=== PATIENT | male | born 1950 | race Caucasian/White ===

== ENCOUNTER → 2020-07-07 | Outpatient (CLI) | payer OTHER | LOC: SJCVCIMAG 13:22 | PROVIDERS: ATTEND Internal Medicine Cardiovascular Disease | DX: I34.0 Nonrheumatic mitral (valve) insufficiency (principal); I11.9 Hypertensive heart disease without heart failure; R94.31 Abnormal electrocardiogram [ECG] [EKG]; I48.0 Paroxysmal atrial fibrillation; I25.10 Atherosclerotic heart disease of native coronary artery without angina pectoris; E78.00 Pure hypercholesterolemia, unspecified; E11.9 Type 2 diabetes mellitus without complications; G47.33 Obstructive sleep apnea (adult) (pediatric); Z98.890 Other specified postprocedural states; Z87.891 Personal history of nicotine dependence; Z82.49 Family history of ischemic heart disease and other diseases of the circulatory system ==

== ENCOUNTER → 2020-07-15 | Outpatient (CLI) | payer OTHER | LOC: SJCVC 15:49 | PROVIDERS: ATTEND Internal Medicine Cardiovascular Disease | DX: I48.0 Paroxysmal atrial fibrillation (principal); R94.31 Abnormal electrocardiogram [ECG] [EKG]; I25.10 Atherosclerotic heart disease of native coronary artery without angina pectoris; I10 Essential (primary) hypertension; E66.9 Obesity, unspecified; G47.33 Obstructive sleep apnea (adult) (pediatric); Z79.899 Other long term (current) drug therapy; Z98.890 Other specified postprocedural states; Z87.891 Personal history of nicotine dependence; Z82.49 Family history of ischemic heart disease and other diseases of the circulatory system ==

== ENCOUNTER → 2020-08-03 | Outpatient (CLI) | payer OTHER ==
[2020-08-03 10:37] LABS: HEMATOCRIT 42.5 % (42.0-52.0); HEMOGLOBIN 14.1 gm/dL (14.0-18.0); MCH 29.9 pg (26.0-34.0); MCHC 33.1 g/dL (28.0-37.0); MCV 90.5 fL (80.0-100.0); RBC 4.69 mil/uL (4.50-6.00); RDW 13.7 % (10.5-14.5); WBC 8.4 thou/uL (4.0-11.0)
[2020-08-03 11:21] LABS: ALBUMIN 3.7 g/dL (3.4-5.0); CALCIUM 8.9 mg/dL (8.5-10.1); CREATININE 0.9 mg/dL (0.7-1.3); POTASSIUM 4.4 mmol/L (3.5-5.1); TOTAL BILIRUBIN 0.9 mg/dL (0.2-1.0); TOTAL PROTEIN 7.2 g/dL (6.4-8.2)
== END ==
LOC: CAT
PROVIDERS: ATTEND Internal Medicine Cardiovascular Disease
DX: I48.91 Unspecified atrial fibrillation (principal); I25.84 Coronary atherosclerosis due to calcified coronary lesion

== ENCOUNTER → 2020-08-03 | Outpatient (CLI) | payer OTHER | LOC: LAB 12:17 | PROVIDERS: ATTEND Internal Medicine Cardiovascular Disease | DX: Z01.812 Encounter for preprocedural laboratory examination (principal); Z20.822 Contact with and (suspected) exposure to COVID-19 ==

== ENCOUNTER → 2020-08-06 | Outpatient (CLI) | payer OTHER ==
[~2020-08-06] VITALS: Ht 177.8 cm; Wt 126.1 kg
[~2020-08-06] MED LIST: BARIATRIC MV-I1 EACH PO; CALCIUM500 MG PO; ELIQUIS5 MG PO; PRAVASTATIN SOD20 MG PO; SYNTHROID75 MCG PO
--- NOTE | ~2020-08-06 | P ---
[facility] [place] [address] PROCEDURE REPORT Name: DENTON REAL Room #: REG DEVIN Librado.#: [id number] Admission: 08/06/20 Attend Phys: Les Mcdonald MD Discharge: Date of : 46 Report #: [id number] THIS REPORT FOR: cc: Syed Vazquez Louis D. DO Couchonnal, Luis F. MD ~ DATE OF SERVICE: 08/07/2020 PREOPERATIVE DIAGNOSIS: Atrial fibrillation. POSTOPERATIVE DIAGNOSIS: Atrial fibrillation. PROCEDURES PERFORMED: 1. Atrial fibrillation, CPT code 14242. 2. 3D mapping, CPT code 94245. 3. Intracardiac echo, CPT code 47852. 4. Focal ablation, CPT code 77923. HISTORY: The patient is a 70-year-old with recurrent AFib despite cardioversion here for ablation. ANESTHESIA: The patient underwent general anesthesia with no anesthesia related complications. DESCRIPTION OF PROCEDURE: The patient when informed consent, we discussed the details of the procedure including the risks, which include but not limited to bleeding, vascular damage, stroke, [place], cardiac perforation. He understood these risks and is willing to proceed. The patient was brought to the EP laboratory in a fasting nonsedated state, prepped and draped in sterile fashion. I obtained access to the right femoral vein x 3, placing an 8, 9 and 7-Welsh short sheath. Under fluoroscopy, I placed a decapolar catheter using the coronary sinus and ICE catheter in the right atrium created a detailed 3D geometry of the left atrium using CartoSound. Then, the patient was systemically heparinized. The transseptal was performed, which was straightforward and we started by creating a 3D voltage map using a Lasso catheter and then we started isolating the veins. The left superior pulmonary vein was challenging. Despite a very nice pressure waveforms during multiple freezes, I could not isolate this vein. I turned my attention to the left inferior pulmonary vein. This vein underwent a 4-minute freeze isolating in 50 seconds, the right superior pulmonary vein underwent a 100 second freeze isolated within 12 seconds. I came off early due to cool attempts and then I performed an additional 4-minute freeze. Right inferior pulmonary vein underwent a 3-minute freeze as this vein isolated at 26 seconds. I then went back to the left superior pulmonary vein. Attempted to re-isolate this and this [address] [address] PROCEDURE REPORT Name: DENTON REAL Room #: REG DEVIN Celeste#: [id number] Admission: 08/06/20 Attend Phys: Les Mcdonald MD Discharge: Date of : 46 Report #: [id number] did not work. Therefore, I decided to go ahead and perform a posterior roof line. I created a roof line connecting the left superior pulmonary vein to the right superior pulmonary vein and then I inspected the left superior pulmonary vein. Again, it was still not isolated. Therefore, I removed the cryoablation catheter from the left atrium and went up with a SmartTouch ThermoCool and performed a double transseptal using my SL1 sheath and there was an area of connection along the ridge between the left superior pulmonary vein and the left atrial appendage. Ablation at this one site resulted in isolation of the vein in 5 seconds. I performed additional ablation around this region to ensure we did not get reconnection and I then went back with the SmartTouch ThermoCool and performed additional ablation along the roof line to finish off the roof line where there was an area of connection near the right superior pulmonary vein. Of note, the patient did undergo cardioversion prior to finally isolating the left superior pulmonary vein and therefore we could demonstrate entrance and exit block. Postablation, the patient was in sinus rhythm. There was no evidence of pericardial effusion. The patient received systemic protamine. Once the ACT was within acceptable range, catheters and sheaths were pulled and hemostasis was obtained. CONCLUSIONS: 1. Successful AFib ablation with isolation of the pulmonary veins. 2. Successful posterior wall isolation. By: [id number] Les Mcdonald MD /nt
[2020-08-06 07:07] VITALS: BP 141/83
[2020-08-06 07:32] LABS: ABSOLUTE NEUTROPHILS 4.6 thou/uL (1.4-8.2); BASOPHILS 1.1 % (0.0-2.0); EOSINOPHILS 5.2 % (0.0-3.0); HEMATOCRIT 43.5 % (42.0-52.0); HEMOGLOBIN 14.2 gm/dL (14.0-18.0); MCH 29.6 pg (26.0-34.0); MCHC 32.6 g/dL (28.0-37.0); MCV 90.8 fL (80.0-100.0); MONOCYTES 10.2 % (1.0-8.0); PLATELET COUNT 206 thou/uL (150-400); POLYS 61.5 % (36.0-66.0); RBC 4.79 mil/uL (4.50-6.00); RDW 13.6 % (10.5-14.5); WBC 7.5 thou/uL (4.0-11.0)
[2020-08-06 07:37] LABS: CALCIUM 9.1 mg/dL (8.5-10.1); CREATININE 0.9 mg/dL (0.7-1.3); POTASSIUM 4.2 mmol/L (3.5-5.1)
[2020-08-06 07:39] LABS: PROTIME 10.9 Seconds (9.3-11.4)
[2020-08-06 07:44] LABS: ALBUMIN 3.7 g/dL (3.4-5.0); TOTAL BILIRUBIN 0.8 mg/dL (0.2-1.0); TOTAL PROTEIN 7.2 g/dL (6.4-8.2)
== END | disposition home or self-care (01) ==
LOC: CATH 07:45
PROVIDERS: ATTEND Internal Medicine Cardiovascular Disease
DX: I48.91 Unspecified atrial fibrillation (principal); I10 Essential (primary) hypertension; I25.10 Atherosclerotic heart disease of native coronary artery without angina pectoris; G47.33 Obstructive sleep apnea (adult) (pediatric); E66.9 Obesity, unspecified; Z98.890 Other specified postprocedural states; Z79.899 Other long term (current) drug therapy; Z87.891 Personal history of nicotine dependence; Z79.01 Long term (current) use of anticoagulants
CPT/HCPCS: 62110; 62900; 65020; 65040; 70005

== ENCOUNTER → 2020-12-03 | Outpatient (CLI) | payer OTHER | LOC: SJCVC 13:31 | PROVIDERS: ATTEND Internal Medicine Cardiovascular Disease | DX: I48.91 Unspecified atrial fibrillation (principal); E78.5 Hyperlipidemia, unspecified; E66.01 Morbid (severe) obesity due to excess calories; G47.33 Obstructive sleep apnea (adult) (pediatric); E11.9 Type 2 diabetes mellitus without complications; I25.10 Atherosclerotic heart disease of native coronary artery without angina pectoris; G47.30 Sleep apnea, unspecified; Z79.899 Other long term (current) drug therapy; Z87.891 Personal history of nicotine dependence; Z72.89 Other problems related to lifestyle ==

== ENCOUNTER → 2020-12-17 | Outpatient (CLI) | payer OTHER | LOC: SJCVC 14:46 | PROVIDERS: ATTEND Internal Medicine Cardiovascular Disease | DX: I25.10 Atherosclerotic heart disease of native coronary artery without angina pectoris (principal); I10 Essential (primary) hypertension; E78.00 Pure hypercholesterolemia, unspecified; I48.0 Paroxysmal atrial fibrillation; D68.59 Other primary thrombophilia; G47.33 Obstructive sleep apnea (adult) (pediatric); R93.1 Abnormal findings on diagnostic imaging of heart and coronary circulation; E78.5 Hyperlipidemia, unspecified; Z79.899 Other long term (current) drug therapy; Z87.891 Personal history of nicotine dependence; Z72.89 Other problems related to lifestyle ==

== ENCOUNTER → 2021-03-04 | Outpatient (CLI) | payer OTHER | LOC: SJCVC 13:08 | PROVIDERS: ATTEND Internal Medicine Cardiovascular Disease | DX: I48.0 Paroxysmal atrial fibrillation (principal); I25.10 Atherosclerotic heart disease of native coronary artery without angina pectoris; I10 Essential (primary) hypertension; E78.5 Hyperlipidemia, unspecified; G47.33 Obstructive sleep apnea (adult) (pediatric); E66.01 Morbid (severe) obesity due to excess calories; Z82.49 Family history of ischemic heart disease and other diseases of the circulatory system; Z79.899 Other long term (current) drug therapy; Z72.89 Other problems related to lifestyle; Z87.891 Personal history of nicotine dependence ==

== ENCOUNTER → 2021-08-02 | Outpatient (CLI) | payer OTHER ==
[~2021-08-02] VITALS: Ht 175.3 cm; Wt 128.0 kg
[2021-08-02 07:37] VITALS: BP 132/81
[2021-08-02 07:52] LABS: CALCIUM 9.4 mg/dL (8.5-10.1); CREATININE 0.8 mg/dL (0.7-1.3); POTASSIUM 4.5 mmol/L (3.5-5.1)
--- NOTE | 2021-08-02 09:17 | TEE ---
[facility] [place] [address] TRANSESOPHAGEAL ECHOCARDIOGRAM Name: DENTON REAL Room #: REG [facility]#: [id number] Admission: 08/02/21 Attend Phys: Simon French MD, Discharge: Date of : 46 Report #: [id number] THIS REPORT FOR: cc: Syed Vazquez Louis D. DO Santiago, Patrick MD [facility] ~ APPROVED REPORT Study performed: 08/02/2021 07:46:18 EXAM: Transesophageal Echocardiogram Patient Location: Out-Patient Status: routine BSA: 2.42 HR: 105 bpm BP: 126/83 mmHg Rhythm: Atrial Fibrillation Other Information Study Quality: Good Indications Atrial Fibrillation Cardioversion. Procedure After obtaining informed consent, patient underwent transesophageal echo in the [employer]. Type of Sedation : Conscious Sedation Sedation was administered by Pamela Bradford RN. Sedation start time: 0800 Case end Time: 805 Sedation was achieved intravenously with: Versed (4) Fentanyl (50) Transesophageal probe was inserted and advanced into esophagus without difficulty by Simon French MD [facility]. Echo enhancement indication: R/O Septal defect. Echo enhancement agent administered: Agitated Saline The JUANCARLOS was performed without complications. Synchronized Cardioversion attempted: Successful Synchronized Cardioversion acheived with 200 Joules after 1 attempt(s). Rhythm following Synchronized Cardioversion: Normal Sinus Rhythm Throughout the procedure, the blood pressure, pulse oximetry, cardiac rhythm, and rate were monitored. [facility] [address] [place] [address] TRANSESOPHAGEAL ECHOCARDIOGRAM Name: DENTON REAL Room #: REG [facility].#: [id number] Admission: 08/02/21 Attend Phys: Simon French, Discharge: Date of : 46 Report #: [id number] The patient tolerated the procedure without adverse effects. Recovery from conscious sedation was uneventful and vital signs were stable. Left Ventricle The left ventricle is normal size. There is normal LV segmental wall motion. There is normal left ventricular wall thickness. Left ventricular systolic function is normal. LVEF is 55-60%. Right Ventricle The right ventricle is normal size. The right ventricular systolic function is normal. Atria Left atrium is dilated. The right atrium size is normal. No thrombus is visualized in the left atrium or appendage. No shunting noted with bubble study. Aortic Valve The aortic valve is normal in structure. No aortic regurgitation is present. There is no aortic valvular stenosis. Mitral Valve The mitral valve is normal in structure. Mild mitral regurgitation. No evidence of mitral valve stenosis. Tricuspid Valve The tricuspid valve is normal in structure. There is no tricuspid valve regurgitation noted. Pulmonic Valve The pulmonary valve is normal in structure. Great Vessels The aortic root is normal in size. The ascending aorta is normal in size. Pericardium There is no pericardial effusion. <Conclusion> Consent was obtained Timeout was performed After appropriate sedation, JUANCARLOS probe advanced without difficulty Left atrial appendage, small, no obvious mass or clot detected [facility] [address] [place] [address] TRANSESOPHAGEAL ECHOCARDIOGRAM Name: DENTON REAL Room #: REG [facility] [id number] Admission: 08/02/21 Attend Phys: Simon French, Discharge: Date of : 46 Report #: [id number] Left atrium mildly dilated Normal left ventricle size/wall thickness ejection fraction 60% Normal right ventricle size/function Normal aortic valve structure and function Mild mitral valve insufficiency No tricuspid valve insufficiency No pericardial effusion Minimal calcification throughout the aorta No evidence of ASD/VSD by color flow/bubble study Patient successfully cardioverted to normal sinus rhythm after 200 J/biphasic mode Patient tolerated procedure well Twelve-lead ECG pending <ELECTRONICALLY SIGNED> By: Simon French MD, FACC 08/02/21915 5 5 Simon French MD, FACC /INF
--- NOTE | 2021-08-02 11:39 | EKG ---
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: [facility] : 1950 Requested By: Simon French Order Number: [id number] MD: Simon French Measurements Intervals [place] Rate: 72 P: 45 [place]: 171 QRS: 14 QRSD: 107 T: 12 QT: 395 QTc: 433 Interpretive Statements Sinus rhythm Atrial premature complex Low voltage, precordial leads No previous ECG available for comparison Electronically Signed On 08-02-2021 11:39:31 [employer] by Simon French [email or web address] <ELECTRONICALLY SIGNED> By: Simon French MD, [facility] 08/02/21 1139 0858 08 Simon French MD, FACC /EPI
== END | disposition home or self-care (01) ==
LOC: CATH 06:24
PROVIDERS: ATTEND Internal Medicine
DX: I48.91 Unspecified atrial fibrillation (principal); I34.0 Nonrheumatic mitral (valve) insufficiency; I10 Essential (primary) hypertension; I25.10 Atherosclerotic heart disease of native coronary artery without angina pectoris; E78.5 Hyperlipidemia, unspecified; G47.33 Obstructive sleep apnea (adult) (pediatric); E66.9 Obesity, unspecified; Z98.890 Other specified postprocedural states; Z79.899 Other long term (current) drug therapy; Z87.891 Personal history of nicotine dependence; Z79.01 Long term (current) use of anticoagulants